=== PATIENT | female | born 1975 | race Caucasian/White ===

== ENCOUNTER 2017-12-16 00:16 | Emergency (ER) | payer BC ==
[~2017-12-16 00:16] MED LIST: ALBU8.5H IH; ALPR-429 PO; AMOX-559 PO; ASPI81TA94 PO; ATOR10TA65 PO; ATOR20TA22 PO; ATOR20TA65 PO; AZIT-17 PO; AZIT500T47 PO; BEN100 PO; CETI-176 PO; CHOL500045 PO; CYCL10TA29 PO; ESC10 PO; ESCI20TA38 PO; FLUT16SP19 NS; FLUT1DIS28 IH; IBUP-1618 PO; MELO-207 PO; MOMR ASDIRECTED; MUCINEX; OMEG500C7 PO; OMEP40CA48 PO; OXYGENHOME INH; PANT40TA65 PO; PRE20 PO; PRESTIQUE PO; PROAIRPT IH; PROC5L PO; ROS10 PO
--- NOTE | 2017-12-16 00:19 | ER Report ---
History and Physical Time Seen By MD: 00:18 HPI/ROS CHIEF COMPLAINT: Left facial swelling HISTORY OF PRESENT ILLNESS: 42-year-old female presents ambulatory to the ER complaining of left facial swelling secondary to a fractured tooth. Agents neglected the tooth for some time. She recently had facial swelling in his been following up with her primary care doctor. She was started on amoxicillin 875 mg twice a day without improvement. She's been switched to Ceftin. Patient was given a shot of Rocephin yesterday. Patient has no difficulty swallowing or breathing. She notes no fever or chills. She notes throbbing pain. She's been taking quite a few [place] for pain relief. She is down to 4 tablets of a prescription of 10 tablets that was provided to her by primary care. REVIEW OF SYSTEMS: Respiratory: No cough, no dyspnea. Cardiovascular: No chest pain, no palpitations. Gastrointestinal: No vomiting, no abdominal pain. Musculoskeletal: No back pain. Allergies: Coded Allergies: No Known Drug Allergies (Verified , 12/16/17) Home Meds Active Scripts Hydrocodone Bit/Acetaminophen (NORCO 5-325 TABLET) 1 Each Tablet, 1-2 EACH PO Q4H Y for PAIN, #12 TAB Prov:MANUEL FABIAN DO 12/16/17 Promethazine Hcl (PROMETHAZINE HCL) 25 Mg Tablet, 25 MG PO Q4H Y for nausea or vomiting, #14 TAB Prov:MANUEL FABIAN DO 12/16/17 Clindamycin Hcl (CLINDAMYCIN HCL) 300 Mg Capsule, 300 MG PO Q6H for infection, # 28 CAPSULE TAKE 1 CAPSULE EVERY SIX HOURS Prov:MANUEL FABIAN DO 12/16/17 Alprazolam (XANAX) 0.5 Mg Tablet, 1 TAB PO TID for Anxiety, #30 TAB Prov:NIK CHOW MD 12/12/17 Escitalopram Oxalate (LEXAPRO) 10 Mg Tab, 10 MG PO DAILY, #30 TAB 6 Refills Prov:NIK CHOW MD 12/12/17 Pantoprazole Sodium (PANTOPRAZOLE SODIUM) 40 Mg Tablet.dr, 40 MG PO QDAY, #30 TAB.SR 6 Refills Prov:NIK CHOW MD 12/12/17 Atorvastatin Calcium (ATORVASTATIN CALCIUM) 20 Mg Tablet, 1 TAB PO QDAY, #30 TAB 6 Refills Prov:NIK CHOW MD 12/12/17 Albuterol Sulfate 90 Mcg/Act (PROAIR HFA 90 MCG/ACT) 8.5 Gm Hfa.aer.ad, 2 PUFF IH Q4-6H, #1 INHALER 3 Refills Prov:NIK CHOW MD 12/07/15 Reported Medications Cetirizine Hcl (ZYRTEC) 10 Mg Tablet, 10 MG PO QDAY Y for ALLERGY SYMPTOMS, TAB 11/13/16 Oxygen (OXYGEN) Inha, 2 L INH PRN, L 11/22/15 Cholecalciferol (Vitamin D3) (VITAMIN D) 5,000 Unit Tablet, 1 TAB PO QDAY 11/22/15 Aspirin (ASPIRIN) 81 Mg Tab.chew, 81 MG PO QDAY, TAB.CHEW 08/29/15 Ibuprofen (Motrin) 400 Mg Tablet, 400 MG PO PRN for PAIN, #20 10/16/12 Discontinued Reported Medications Atorvastatin Calcium (ATORVASTATIN CALCIUM) 10 Mg Tablet, 1 TAB PO QHS, TAB 02/10/16 Past Medical/Surgical History Past Medical History Cardiovascular: Reports hx of: hyperlipidemia Respiratory: Reports hx of: other respiratory history (Nocturnal hypoxia) Gastrointestinal: Reports hx of: GERD Integumentary: Reports hx of: psoriasis Psychiatric: Reports hx of: depression Hematology/oncology: Reprots hx of: other hematologic history (Polycythemia) Reviewed Nurses Notes: Yes Old Medical Records Reviewed: Yes Hx Smoking: Yes (1 PPD X 20+ YRS) Smoking Status: Current: Every Day Smoker Hx Substance Use Disorder: No Hx Alcohol Use: Yes (occ) Constitutional Vital Sign - Last 24 Hours 12/16/17 00:20 Temp 97.9 Pulse 81 Resp 16 B/P (MAP) 152/91 Pulse Ox 94 O2 Delivery Room Air Physical Exam Vital signs stable, afebrile, pulse ox normal General Appearance: The patient is alert, has no immediate need for airway protection and no current signs of toxicity. Mild distress HEENT: Pupils equal and round no injection. TMs normal, TMJs nontender, examination of the oropharynx reveals a tooth with a large carry eroded to the gumline at position number #20 with significant gum inflammation and erythema. Respiratory: Chest is non tender, lungs are clear to auscultation. Cardiac: regular rate and rhythm Gastrointestinal: Abdomen is soft and non tender, no masses, bowel sounds normal. Musculoskeletal: Neck: Neck is supple and non tender. No lymphadenopathy, no induration of neck tissues Extremities have full range of motion and are non tender. Skin: No rashes or lesions. DIFFERENTIAL DIAGNOSIS: After history and physical exam differential diagnosis was considered for dental abscess, osteomyelitis of the jaw, facial abscess Medical Decision Making ED Course/Re-evaluation ED Course Patient was admitted to an examination room. H&P was done. The differential diagnosis was considered. On clinical examination. Patient has obvious large dental abscess. There is significant facial edema. There is a tooth eroded to the gumline with a large caries involving the entire tooth. There is surrounding gum inflammation and edema consistent with infection of the socket. Patient states she has a dentist in [place]. She is unable to get in for a couple of weeks. Patient advised to contact her dentist on Sunday morning and arrange for an appointment as soon as possible. She needs this dental root extracted fur nailer can be drainage of the infection through the socket. Patient be switched to clindamycin 300 mg 4 times a day. She's given a refill of [place] 5/325. She is advised to max out ibuprofen 800 mg 3 times daily. And apply warm compresses to her jaw area. Decision to Disposition Date: Dec 16, 2017 Decision to Disposition Time: 00:28 Depart Departure Latest Vital Signs Vital Signs Date Time Temp Pulse Resp B/P (MAP) Pulse Ox O2 Delivery O2 Flow Rate FiO2 12/16/17 00:20 97.9 81 16 152/91 94 Room Air Impression: Primary Impression: Abscessed tooth Additional Impression: Facial swelling Condition: Improved Disposition: HOME OR SELF-CARE Referrals: NIK CHOW MD (PCP) New Scripts Hydrocodone Bit/Acetaminophen (NORCO 5-325 TABLET) 1 Each Tablet 1-2 EACH PO Q4H Y for PAIN, #12 TAB Prov: MANUEL FABIAN DO 12/16/17 Promethazine Hcl (PROMETHAZINE HCL) 25 Mg Tablet 25 MG PO Q4H Y for nausea or vomiting, #14 TAB Prov: MANUEL FABIAN DO 12/16/17 Clindamycin Hcl (CLINDAMYCIN HCL) 300 Mg Capsule 300 MG PO Q6H for infection, #28 CAPSULE TAKE 1 CAPSULE EVERY SIX HOURS Prov: MANUEL FABIAN DO 12/16/17 Patient Instructions: Dental Abscess (ED) Additional Instructions: Take ibuprofen 200 mg 3 tablets 3 times a day with food Use Phenergan to control the nausea and vomiting, taking Phenergan with the hydrocodone. Will increase its effectiveness as a pain reliever Apply heating pad or warm compresses to the left side of her jaw Follow-up with dentist as soon as possible Problem Qualifiers MANUEL FABIAN DO Dec 16, 2017 00:19
[2017-12-16 00:20] VITALS: BP 152/91
[2017-12-16] MEDS ORDERED: CLIN300C99 PO (00:31)
[2017-12-16] MEDS ORDERED: HYDR-4309 PO (00:31)
[2017-12-16] MEDS ORDERED: PROM-110 PO (00:31)
[2017-12-16] MEDS ORDERED: CLINDAMYCIN 150 MG CAP PO ONE (00:35)
[2017-12-16] MEDS ORDERED: ONDANSETRON 4 MG ODT TABDP SL ONE (00:35)
[2017-12-16] MEDS ORDERED: PROMETHAZINE HCL 25 MG TAB TH 2 TAB/BOTTLE PO ONE (00:35)
== END 2017-12-16 00:48 | disposition home or self-care (01) ==
LOC: ER 00:46
DX: K04.7 Periapical abscess without sinus (principal); M79.89 Other specified soft tissue disorders
CPT/HCPCS: 99283; S0119

== ENCOUNTER → 2018-07-03 | Outpatient (CLI) | payer BC ==
[~2018-07-03] MED LIST changes: +CLIN300C99 PO; +FLU60VIA41 IM; +HYDR-653 PO; +HYDR453.8 TP; +PROM-110 PO; +TRIA15OI20 TP
[2018-07-03 09:41] LABS: PLATELET COUNT, AUTOMATED 254 K/uL (150-450)
== END ==
LOC: LAB 09:07
PROVIDERS: ATTEND Physician Assistant Medical
DX: L40.50 Arthropathic psoriasis, unspecified (principal); M25.10 Fistula, unspecified joint; Z79.899 Other long term (current) drug therapy
CPT/HCPCS: 36415; 82040; 82247; 82310; 82374; 82435; 82565; 82947; 84075; 84132; 84155; 84295; 84450; 84460; 84520; 85025; 85651; 86038; 86140; 86200; 86430; 86803; 86812; 87340

== ENCOUNTER → 2018-11-25 | Outpatient (CLI) | payer BC ==
[~2018-11-25] MED LIST changes: +BENZ200C15 PO; +ESCI10TA8 PO; +GUAI120L3 PO; +HYDR-385 PO; +OSE75 PO; +POLY10DR20 OP; +SECU150S2 IM
--- NOTE | 2018-11-25 11:31 | RADIOLOGY IMAGING REPORT ---
FACILITY: [facility] [place] PATIENT NAME: Serenity Fernandes : 1975 MR: [id number] V: [id number] EXAM DATE: ORDERING PHYSICIAN: NIK CHOW TECHNOLOGIST: Location: [facility] [place] Patient: Serenity Fernandes : 1975 Visit/Account:[id number] Date of Sevice: 11/25/2018 XR WRIST 3 OR MORE VIEWS RT Indication: wrist pain Comparison: None. Findings: The carpal bones and the distal radius and ulna are intact. Soft tissues are normal. Ther e is no evidence of fracture. IMPRESSION: Normal right wrist radiograph. No evidence of fracture or dislocation. Report Dictated By: Christo Minor at 11/25/2018 11:25 AM Report E-Signed By: Christo Minor at 11/25/2018 11:25 AM WSN:[id number]
== END ==
LOC: RAD 10:00
PROVIDERS: ATTEND Internal Medicine
DX: S63.501A Unspecified sprain of right wrist, initial encounter (principal)